=== PATIENT | male | born 1960 | race Caucasian/White ===

== ENCOUNTER → 2017-08-12 10:11 | Outpatient (CLI) | payer OTHER, MEDICARE ==
[2017-08-12 10:56] LABS: BASOPHILS 0.2 % (0-2); HEMATOCRIT 42.6 % (42.0-54.0); HEMOGLOBIN 15.2 g/dL (13.5-17.5); LYMPHOCYTES 25.2 % (15-50); MCH 32.1 pg (26.0-34.0); MCHC 35.7 g/dL (31.0-37.0); MCV 89.9 fL (80.0-100.0); MEAN PLATELET VOLUME 8.7 fL (7.4-10.4); MONOCYTES 10.2 % (2-11); NEUTROPHILS 62.4 % (40-80); PLATELET COUNT 141 10x3/uL (130-400); RBC 4.74 10x6/uL (4.20-6.10); RDW 12.3 % (11.5-14.5); WBC 4.4 10x3/uL (4.8-10.8)
[2017-08-12 11:31] LABS: ALBUMIN 4.1 g/dL (3.4-5.0); ANION GAP 14.6 mmol/L (8-16); BILIRUBIN - TOTAL 0.6 mg/dL (0.2-1.3); CALCIUM 9.5 mg/dL (8.5-10.1); CARBON DIOXIDE 26.4 mmol/L (21.0-32.0); CHOL - HDL RATIO 3.4 ratio (2.3-4.9); CREATININE - SERUM 1.2 mg/dL (0.6-1.3); PROTEIN - SERUM 7.8 g/dL (6.4-8.2); THYROID STIMULATING HORMONE 1.33 uIU/mL (0.36-3.74)
[2017-08-12 11:32] LABS: SCREENING PSA (YEARLY) 0.92 ng/mL (0.00-4.00)
== END | disposition home or self-care (01) ==
LOC: D.LAB 10:11
PROVIDERS: Family Medicine
DX: Z00.01 Encounter for general adult medical examination with abnormal findings (principal); E78.5 Hyperlipidemia, unspecified; K86.1 Other chronic pancreatitis; I45.9 Conduction disorder, unspecified; Z12.5 Encounter for screening for malignant neoplasm of prostate

== ENCOUNTER 2018-03-01 06:00 | Day surgery (SDC) | payer OTHER, MEDICARE ==
[2018-02-26 14:13] LABS: HEMATOCRIT 41.7 % (42.0-54.0); HEMOGLOBIN 15.3 g/dL (13.5-17.5); MCH 32.3 pg (26.0-34.0); MCHC 36.7 g/dL (31.0-37.0); MCV 88.2 fL (80.0-100.0); RBC 4.73 10x6/uL (4.20-6.10); RDW 12.1 % (11.5-14.5); WBC 5.8 10x3/uL (4.8-10.8)
[2018-02-26 14:35] LABS: APTT 26.2 SECONDS (22.8-39.4); INR 0.96 (0.85-1.17); PROTIME 12.4 SECONDS (11.6-15.0)
[2018-02-26 15:03] LABS: CALC OSMOLALITY 280 mosm/kg (275-300); CALCIUM 9.6 mg/dL (8.5-10.1); CARBON DIOXIDE 28.7 mmol/L (21.0-32.0); CHLORIDE - SERUM 104 mmol/L (98-107); GLUCOSE 96 mg/dL (74-106); POTASSIUM - SERUM 4.3 mmol/L (3.5-5.1); SODIUM 140 mmol/L (136-145); UREA NITROGEN 18 mg/dL (7-18); eGFR NON AFRICAN AMERICAN 82 mL/min (90-120)
[~2018-03-01] VITALS: Ht 177.8 cm; Wt 81.2 kg
--- NOTE | ~2018-03-01 | OP ---
PATIENT NAME: RAYA GAYTAN MEDICAL RECORD: [id number] :62 LOCATION:[facility] ADMISSION DATE: SURGEON: LOI BARKER MD DATE OF OPERATION: 03/01/2018 SURGEON: Loi Barker MD ANESTHESIA: General, Dr. Gill. OPERATION PERFORMED: Pulse generator exchange, AICD. PREOPERATIVE DIAGNOSIS: Cardiomyopathy. POSTOPERATIVE DIAGNOSIS: Cardiomyopathy. INDICATION FOR OPERATION: Pulse generator end of life. FINDINGS OF THE OPERATION: The pacemaker implanted Medtronic model number [id number], serial number [id number]. Chronic atrial lead: Atrial lead is Guidant, the atrial threshold is 0.5 volts, impedance 361 ohms, P-wave 4.8. The ventricular lead is a Guidant, threshold 1.0 volts, impedance 361 ohms, R-wave 9.1. ESTIMATED BLOOD LOSS: Less than 2 cc. DESCRIPTION OF PROCEDURE: After informed consent, adequate preoperative medication evaluation, the patient was brought to the operating room, placed on the table in the supine position. After induction of general anesthesia and application of appropriate monitoring devices, the left chest was prepped and draped in sterile field, utilizing Betadine scrub, alcohol, and Betadine solution. Betadine-impregnated drape was also used. Then, 1% lidocaine was infiltrated over the device as well as in the pulse generator pocket. Incision was made. Dissection carried down to the device. The device was removed. Hemostasis was achieved. The pocket was enlarged inferiorly and medially. Hemostasis was assured. The leads were then connected to the new pulse generator and placed in the pocket, fired, captured and sensed appropriately. The above findings were noted. They were felt to be good chronic leads. Pocket was irrigated. The instrument count and sponge count were correct times 2. The pocket was closed in layers utilizing 3-0 Vicryl on deep subcutaneous tissue, 5-0 subcuticular Monocryl on the skin. Sterile dressings were applied. The patient tolerated the procedure well and transferred to postanesthesia recovery in satisfactory condition. TRANSINT:[id number] Voice Confirmation ID: [id number] DOCUMENT ID: [id number] OPERATIVE REPORT [id number] GAYTANRAYA MENDEZ LOI BARKER MD at 3553 CC: [id number] DICTATION DATE: 03/01/18 0826 CARDIOLOGY CLINICAL CONSULTANT: 03/01/[address] [facility] 03/01/18 [place] [place] [address]
--- NOTE | ~2018-03-01 | HP ---
PATIENT: RAYA GAYTAN MEDICAL RECORD: [id number] ACCOUNT: [id number] LOCATION:D.OPS : 61 ADMISSION DATE: 03/01/18 HISTORY AND PHYSICAL EXAMINATION NameRAYA GAYTAN (57yo, M) ID# [id number]. Date/Time02/22/2018 11:93LEHCI1961Service Dept.NPP_[facility] ClinicProviderEDLILIANA BARKER MDInsuranceMed Primary: AETNA (PPO) Insurance # : [id number] Policy/Group # : [id number] Referring Provider Name : JEFFY MCNEILL Employer Name : DISABLED Med Secondary: [place]) Insurance # : [id number] Referring Provider Name : JEFFY MCNEILL Employer Name : DISABLED Prescription: CMX - Member is eligible. Chief Complaint pulse generator end-of-life Followup: Conduction disorder of the heart eval for ICD generator exchange Patient's Care Team Referring Provider (): JEFFY MCNEILL: [address] [place] [address] , [address], [place] [address], , Box Sealing Machine Feeder: CARSON BRISCOE MD Patient's Pharmacies [facility] (ERX): [address], [place] [address], , Vitals BP:142/90 sitting L arm 02/22/2018 11:26 amBP Cuff Size:adult 02/22/2018 11:26 amHR:66,reg 02/22/2018 11:26 amHt:5 ft 10 in 02/22/2018 11:21 amWt:179 lbs 02/22/2018 11:25 amNotes:2009 had defibrillator placed secondary to cardiomyopathy. Has not been shocked.02/22/2018 11:27 amBMI:25.7 02/22/2018 11:25 amAllergies Reviewed Allergies CARAFATE: Other (Moderate) - pancreatitisLEVAQUIN: Rash (Mild to moderate)MORPHINE: Rash (Severe)PHENERGAN: Other (Severe) - hallucinationsMedications Reviewed Medications ALPRAZolam 0.25 mg tablet TK 1 T PO TID PRA02/02/18 filledCaremarkcarvedilol 12.5 mg tablet TK 1 AND 1/2 TS PO BID02/16/18 filledCaremarkchlordiazepoxide-clidinium 5 mg-2.5 mg capsule TK ONE C PO Q 6 H PRF EZKTSPIM31/08/18 filledsurescriptsEliquis 2.5 mg tablet TK 1 T PO BID02/16/18 filledCaremarkfenofibric acid (choline) 135 mg capsule,delayed release TK ONE C PO QD02/16/18 filledCaremarkfluvastatin 20 mg capsule TK 1 C PO QD02/16/18 filledCaremarkLovenox 40 mg/0.4 mL subcutaneous syringe Inject 0.4 mL twice a day by subcutaneous route.02/22/18 prescribedSaw Barker MDomeprazole 40 mg capsule,delayed release TAKE 1 CAPSULE BY MOUTH TWICE DAILY02/08/18 filledCaremarkondansetron HCl 4 mg tablet TK 1 T PO Q 6 H PRN09/28/17 filledsurescriptstraMADol 50 mg tablet TK 1 T PO Q 6 H PRN08/17/17 filledCaremarkVirt-Gilma Forte 2.5 mg-25 mg-2 mg tablet Take 1 tablet(s) every day by oral route for 90 days.04/30/17 prescribedThomas Joy Mcneill MDzolpidem ER 12.5 mg tablet,extended release,multiphase TK 1 T PO QD HS PRF SLEEP02/02/18 filledCaremarkVaccines HISTORY AND PHYSICAL [id number] RAYA GAYTAN Reviewed Vaccines Vaccine TypeDateAmt.RouteSiteLot #Mfr.Exp. DateDate on VISVIS ZuoocApzwvnmbfqNqbclhsdj54/170.5 mLIntramuscularRight Upper UwaT5W3HUkhqxVabuwLwgqb11//01/1510/25/17kellie munizinfluenza, injectable, ptrvciymzzie81/11/16influenza, high dose seekiljl85/2014influenza, seasonal, evelyylxlg71/2013Problems Reviewed Problems Disorder of implantable defibrillator - Onset: 02/22/2018 - end of battery life Pain in lower limb Chronic obstructive lung disease Abdominal pain Blindness of one eye Chronic pancreatitis Congestive heart failure Conduction disorder of the heart Hyperlipidemia Essential hypertension Cardiomyopathy Chronic renal failure multiple: heart, pancreas, pulmonary, lipid, copd, chronic renal failure. blind left eye, hyperlipidemia, previous p.e.. off alcohol and tobacco since 2008 Family History Reviewed Family History Mother- Heart diseaseSocial History Reviewed Social History Cardiology and General Family history of heart disease?: Y Smoking Status: Former smoker (Notes: quit 5 years ago) High Cholesterol: Y High blood pressure: Y Exercise level: Occasional Diabetes: N Alcohol intake: Occasional Diet: Regular Marital status: Education: 12 Caffeine intake: Moderate Surgical History Reviewed Surgical History pacemaker-ST KATIE Past Medical History Reviewed Past Medical History Abdominal Pain: Y Blood Clots: Y Chest Pain: Y - upon exertion Dizzy Spells: Y Headache: Y High Blood Pressure: Y Kidney Disease: Y HISTORY AND PHYSICAL [id number] RAYA GAYTAN Shortness of Breath: Y - when walking Notes: chronic pancreatitis Documents for Discussion N/A Screening None recorded. HPI Fatigue Reported by patient. Quality: continuous; symptoms worse during the day Severity: normal sleep patterns; normal activity Duration: intermittent Context: symptoms do not improve on weekends/vacations Modifying Factors: new stressors in life Associated Symptoms: no drug/alcohol withdrawal; no depression; no anxiety; no sleep disturbances; no snoring; periods of not breathing (apnea) have not been observed; no recent change in weight automatic implantable cardio defibrillator end-of-life ROS Patient reports exercise intolerance but reports no fever, no night sweats, no significant weight gain, and no significant weight loss. He reports no dry eyes, no irritation, and no vision change; blind od. He reports no chest pain, no arm pain on exertion, no shortness of breath when walking, no shortness of breath when lying down, no palpitations, and no known heart murmur; pacemaker/defib.. He reports fatigue. He reports no cough, no wheezing, no shortness of breath, and no coughing up blood. He reports no abdominal pain, no vomiting, normal appetite, no diarrhea, not vomiting blood, no nausea, and no constipation. He reports no incontinence, no difficulty urinating, no hematuria, and no increased frequency. He reports no muscle ach e s, no muscle weakness, no arthralgias/joint pain, no back pain, and no swelling in the extremities. He reports no abnormal mole, no jaundice, and no rashes. He reports no loss of consciousness, no weakness, no numbness, no seizures, no dizziness, and no h eadaches. He reports no depression, no sleep disturbances, feeling safe in relationship, and no alcohol abuse. He reports no swollen glands and no bruising. He reports no runny nose, no sinus pressure, no itching, no hives, and no frequent sneezing. ROS as noted in the HPI Physical Exam Patient is a 57-year-old male. Constitutional: General Appearance well nourished and developed and healthy-appearing. Level of Distress NAD. Ambulation ambulating normally. Cardiovascular: Apical Impulse not displaced or n o thrill. Heart Auscultation normal s1 and s2; no murmurs, rubs, or gallops; and RRR. Arterial Pulses no abdominal aorta bruits, femoral bruits, or popliteal bruits and 2+ bilateral, carotid 2+ bilateral, femoral 2+ bilateral, popliteal 2+ bilateral, and dorsalis pedis 2+ bilateral. Edema no edema or varicosities. Lungs: Repiratory Effort no dyspnea. Percussion no hyperresonance or dullness or flatness. Auscultation no wheezing, rhonchi, or rales / crackles and breathing sounds normal, good air movement, and CTA except as noted. Abdomen: Bowl Sounds normal. Inspection and Palpation no tenderness, guarding, masses, or rebound tenderness and soft and non-distended. Liver non-tender and no hepatomegaly. Spleen non-tender and no splenomegaly. Hernia none palpable. HISTORY AND PHYSICAL [id number] RAYA GAYTAN Musculoskeletal System: Gait And Stance normal gait and stance. Digits and Nails normal nails and no cyanosis. Neurologic: Cranial Nerves grossly intact. Reflexes DTRs 2+ bilaterally throughout. Sensation grossly intact. Lymph Nodes: Lymph Nodes no cervical LAD, supraclavicular LAD, axillary LAD, or inguinal LAD. Eyes: Lids and Conjunctivae no discharge or pallor and non-injected and ptosis; blind in his Left eye . Pupils anisocoria. Cornea grossly intact and opacity (left). EOM EOMI; Left . Lens clear. Sclerae non-icteric. Neck: Neck no masses, enlarged lymph nodes, or carotid bruits and supple and trachea midline. Thyroid no enlargement or nodules and non-tender. Skin: Inspection and Palpation no rash, lesions, ulcers, jaundice, or abnormal nevi. Assessment / Plan automatic implantable cardio defibrillator at end of life 1. Conduction disorder of the heart I45.9: Conduction disorder, unspecified CARDIAC ARRHYTHMIA: CARE INSTRUCTIONS 2. Disorder of implantable defibrillator T82.198S: Other mechanical complication of other cardiac electronic device, sequela Discussion Notes Harmonic implantable cardio defibrillator battery at end of life Patient has a cardiomyopathy as the diagnosis for his device. He has pacing episodes but no defibrillation. I have discussed his disease process with him and his in detail as well as the alternative methods of treatment. We discussed automatic implantable cardiac defibrillator exchange including the expected benefits and risks which i nclude bleeding, infection, stroke, , and the imponderables. He understands all of the above and wishes to proceed with planned surgery. The patient will need a Lovenox bridge to surgery due to his eliquis. SAW BARKER MD at 1256 CC: [id number] DICTATION DATE: 02/22/18 1100 LOADING UNIT TOOL SETTER: BRENDA 02/25/18 1318 PRE [facility] [address] [place] [address]
--- NOTE | ~2018-03-01 | HP ---
PATIENT: RAYA GAYTAN MEDICAL RECORD: [id number] ACCOUNT: [id number] LOCATION:D.OPS : 61 ADMISSION DATE: 03/01/18 HISTORY AND PHYSICAL EXAMINATION NameRAYA GAYTAN (57yo, M) ID# [id number]. Date/Time02/22/2018 11:91EQFKL1961Service Dept.NPP_[place] [facility] ClinicProviderEDLILIANA BARKER MDInsuranceMed Primary: AETNA (PPO) Insurance # : [id number] Policy/Group # : [id number] Referring Provider Name : JEFFY MCNEILL Employer Name : DISABLED Med Secondary: [place] (MED[place]ARE) Insurance # : [id number] Referring Provider Name : JEFFY MCNEILL Employer Name : DISABLED Prescription: CMX - Member is eligible. Chief Complaint pulse generator end-of-life Followup: Conduction disorder of the heart eval for ICD generator exchange Patient's Care Team Referring Provider (): JEFFY MCNEILL: [address] [place] [address] , [address], [place] [address], , Cage Supervisor: CARSON BRISCOE MD Patient's Pharmacies [facility] [address] (ERX): [address], [place] [address], , Vitals BP:142/90 sitting L arm 02/22/2018 11:26 amBP Cuff Size:adult 02/22/2018 11:26 amHR:66,reg 02/22/2018 11:26 amHt:5 ft 10 in 02/22/2018 11:21 amWt:179 lbs 02/22/2018 11:25 amNotes:2009 had defibrillator placed secondary to cardiomyopathy. Has not been shocked.02/22/2018 11:27 amBMI:25.7 02/22/2018 11:25 amAllergies Reviewed Allergies CARAFATE: Other (Moderate) - pancreatitisLEVAQUIN: Rash (Mild to moderate)MORPHINE: Rash (Severe)PHENERGAN: Other (Severe) - hallucinationsMedications Reviewed Medications ALPRAZolam 0.25 mg tablet TK 1 T PO TID PRA02/02/18 filledCaremarkcarvedilol 12.5 mg tablet TK 1 AND 1/2 TS PO BID02/16/18 filledCaremarkchlordiazepoxide-clidinium 5 mg-2.5 mg capsule TK ONE C PO Q 6 H PRF [id number]/08/18 filledsurescriptsEliquis 2.5 mg tablet TK 1 T PO BID02/16/18 filledCaremarkfenofibric acid (choline) 135 mg capsule,delayed release TK ONE C PO QD02/16/18 filledCaremarkfluvastatin 20 mg capsule TK 1 C PO QD02/16/18 filledCaremarkLovenox 40 mg/0.4 mL subcutaneous syringe Inject 0.4 mL twice a day by subcutaneous route.02/22/18 prescribedSaw Barker MDomeprazole 40 mg capsule,delayed release TAKE 1 CAPSULE BY MOUTH TWICE DAILY02/08/18 filledCaremarkondansetron HCl 4 mg tablet TK 1 T PO Q 6 H PRN09/28/17 filledsurescriptstraMADol 50 mg tablet TK 1 T PO Q 6 H PRN08/17/17 filledCaremarkVirt-Gilma Forte 2.5 mg-25 mg-2 mg tablet Take 1 tablet(s) every day by oral route for 90 days.04/30/17 prescribedThomas Joy Mcneill MDzolpidem ER 12.5 mg tablet,extended release,multiphase TK 1 T PO QD HS PRF SLEEP02/02/18 filledCaremarkVaccines HISTORY AND PHYSICAL [id number] RAYA GAYTAN Reviewed Vaccines Vaccine TypeDateAmt.RouteSiteLot #Mfr.Exp. DateDate on VISVIS SarwzUednmzohuuOxssoktjg03/170.5 mLIntramuscularRight Upper UegN2F9JNdwhzUclmvUnzwq34//01/1510/25/17kellie munizinfluenza, injectable, abclnhofdfon15/11/16influenza, high dose ynxmoejq65/2014influenza, seasonal, agxhvvhzgi89/2013Problems Reviewed Problems Disorder of implantable defibrillator - Onset: 02/22/2018 - end of battery life Pain in lower limb Chronic obstructive lung disease Abdominal pain Blindness of one eye Chronic pancreatitis Congestive heart failure Conduction disorder of the heart Hyperlipidemia Essential hypertension Cardiomyopathy Chronic renal failure multiple: heart, pancreas, pulmonary, lipid, copd, chronic renal failure. blind left eye, hyperlipidemia, previous p.e.. off alcohol and tobacco since 2008 Family History Reviewed Family History Mother- Heart diseaseSocial History Reviewed Social History Cardiology and General Family history of heart disease?: Y Smoking Status: Former smoker (Notes: quit 5 years ago) High Cholesterol: Y High blood pressure: Y Exercise level: Occasional Diabetes: N Alcohol intake: Occasional Diet: Regular Marital status: Education: 12 Caffeine intake: Moderate Surgical History Reviewed Surgical History pacemaker-ST KATIE Past Medical History Reviewed Past Medical History Abdominal Pain: Y Blood Clots: Y Chest Pain: Y - upon exertion Dizzy Spells: Y Headache: Y High Blood Pressure: Y Kidney Disease: Y HISTORY AND PHYSICAL [id number] RAYA GAYTAN Shortness of Breath: Y - when walking Notes: chronic pancreatitis Documents for Discussion N/A Screening None recorded. HPI Fatigue Reported by patient. Quality: continuous; symptoms worse during the day Severity: normal sleep patterns; normal activity Duration: intermittent Context: symptoms do not improve on weekends/vacations Modifying Factors: new stressors in life Associated Symptoms: no drug/alcohol withdrawal; no depression; no anxiety; no sleep disturbances; no snoring; periods of not breathing (apnea) have not been observed; no recent change in weight automatic implantable cardio defibrillator end-of-life ROS Patient reports exercise intolerance but reports no fever, no night sweats, no significant weight gain, and no significant weight loss. He reports no dry eyes, no irritation, and no vision change; blind od. He reports no chest pain, no arm pain on exertion, no shortness of breath when walking, no shortness of breath when lying down, no palpitations, and no known heart murmur; pacemaker/defib.. He reports fatigue. He reports no cough, no wheezing, no shortness of breath, and no coughing up blood. He reports no abdominal pain, no vomiting, normal appetite, no diarrhea, not vomiting blood, no nausea, and no constipation. He reports no incontinence, no difficulty urinating, no hematuria, and no increased frequency. He reports no muscle ach e s, no muscle weakness, no arthralgias/joint pain, no back pain, and no swelling in the extremities. He reports no abnormal mole, no jaundice, and no rashes. He reports no loss of consciousness, no weakness, no numbness, no seizures, no dizziness, and no h eadaches. He reports no depression, no sleep disturbances, feeling safe in relationship, and no alcohol abuse. He reports no swollen glands and no bruising. He reports no runny nose, no sinus pressure, no itching, no hives, and no frequent sneezing. ROS as noted in the HPI Physical Exam Patient is a 57-year-old male. Constitutional: General Appearance well nourished and developed and healthy-appearing. Level of Distress NAD. Ambulation ambulating normally. Cardiovascular: Apical Impulse not displaced or n o thrill. Heart Auscultation normal s1 and s2; no murmurs, rubs, or gallops; and RRR. Arterial Pulses no abdominal aorta bruits, femoral bruits, or popliteal bruits and 2+ bilateral, carotid 2+ bilateral, femoral 2+ bilateral, popliteal 2+ bilateral, and dorsalis pedis 2+ bilateral. Edema no edema or varicosities. Lungs: Repiratory Effort no dyspnea. Percussion no hyperresonance or dullness or flatness. Auscultation no wheezing, rhonchi, or rales / crackles and breathing sounds normal, good air movement, and CTA except as noted. Abdomen: Bowl Sounds normal. Inspection and Palpation no tenderness, guarding, masses, or rebound tenderness and soft and non-distended. Liver non-tender and no hepatomegaly. Spleen non-tender and no splenomegaly. Hernia none palpable. HISTORY AND PHYSICAL [id number] RAYA GAYTAN Musculoskeletal System: Gait And Stance normal gait and stance. Digits and Nails normal nails and no cyanosis. Neurologic: Cranial Nerves grossly intact. Reflexes DTRs 2+ bilaterally throughout. Sensation grossly intact. Lymph Nodes: Lymph Nodes no cervical LAD, supraclavicular LAD, axillary LAD, or inguinal LAD. Eyes: Lids and Conjunctivae no discharge or pallor and non-injected and ptosis; blind in his Left eye . Pupils anisocoria. Cornea grossly intact and opacity (left). EOM EOMI; Left . Lens clear. Sclerae non-icteric. Neck: Neck no masses, enlarged lymph nodes, or carotid bruits and supple and trachea midline. Thyroid no enlargement or nodules and non-tender. Skin: Inspection and Palpation no rash, lesions, ulcers, jaundice, or abnormal nevi. Assessment / Plan automatic implantable cardio defibrillator at end of life 1. Conduction disorder of the heart I45.9: Conduction disorder, unspecified CARDIAC ARRHYTHMIA: CARE INSTRUCTIONS 2. Disorder of implantable defibrillator T82.198S: Other mechanical complication of other cardiac electronic device, sequela Discussion Notes Harmonic implantable cardio defibrillator battery at end of life Patient has a cardiomyopathy as the diagnosis for his device. He has pacing episodes but no defibrillation. I have discussed his disease process with him and his in detail as well as the alternative methods of treatment. We discussed automatic implantable cardiac defibrillator exchange including the expected benefits and risks which i nclude bleeding, infection, stroke, , and the imponderables. He understands all of the above and wishes to proceed with planned surgery. The patient will need a Lovenox bridge to surgery due to his eliquis. SAW BARKER MD at 1256 CC: [id number] DICTATION DATE: 02/22/18 1100 DRAMATIC DIRECTOR: BRENDA 02/23/18 0832 [facility] [address] [place] [address]
[~2018-03-01 06:00] MED LIST: AMBIEN10 MG PO; COREG12.5 MG PO; FOLIC ACID0.8 MG PO; LESCOL20 MG PO; OMEPRAZOLE40 MG PO; TRILIPIX135 MG PO; XANAX0.25 MG PO; ZOFRAN4 MG PO
[2018-03-01] MEDS ORDERED: ULTRAM50 MG PO (06:23)
[2018-03-01] MEDS ORDERED: LIBRAX CAPSULE1 CAP PO (06:24)
[2018-03-01] MEDS ORDERED: ELIQUIS2.5 MG PO (06:25)
[2018-03-01] MEDS ORDERED: LOVENOX40 MG/0.4 SC (06:26)
[2018-03-01 06:27] VITALS: BP 139/91; Ht 177.8 cm; Wt 81.2 kg
== END 2018-03-01 09:45 | disposition home or self-care (01) ==
LOC: D.OPS 06:00 → D.PAN 07:30 → D.OPS 07:30
PROVIDERS: Internal Medicine Cardiovascular Disease
DX: Z45.02 Encounter for adjustment and management of automatic implantable cardiac defibrillator (principal); I42.9 Cardiomyopathy, unspecified; Z01.812 Encounter for preprocedural laboratory examination

== ENCOUNTER → 2018-08-24 13:26 | Outpatient (CLI) | payer MEDICARE, OTHER ==
[2018-03-01 06:27] VITALS: BMI 25.7
[~2018-08-24 13:26] MED LIST changes: +ELIQUIS2.5 MG PO; +LIBRAX CAPSULE1 CAP PO; +LOVENOX40 MG/0.4 SC; +ULTRAM50 MG PO
[2018-08-24 14:08] LABS: BASOPHILS 0.4 % (0-2); EOSINOPHILS 4.6 % (0-7); HEMATOCRIT 39.2 % (42.0-54.0); HEMOGLOBIN 14.1 g/dL (13.5-17.5); IMMATURE GRANULOCYTES 0.2 % (0-5); LYMPHOCYTES 28.4 % (15-50); MCH 31.5 pg (26.0-34.0); MCV 87.5 fL (80.0-100.0); MONOCYTES 11.2 % (2-11); NEUTROPHILS 55.2 % (40-80); PLATELET COUNT 131 10x3/uL (130-400); RBC 4.48 10x6/uL (4.20-6.10); RDW 12.4 % (11.5-14.5); WBC 4.8 10x3/uL (4.8-10.8)
[2018-08-24 14:42] LABS: ALBUMIN 3.8 g/dL (3.4-5.0); ALKALINE PHOSPHATASE 34 U/L (46-116); ALT (SGPT) 23 U/L (10-68); BILIRUBIN - TOTAL 0.51 mg/dL (0.2-1.3); CALC OSMOLALITY 281 mosm/kg (275-300); CALCIUM 8.7 mg/dL (8.5-10.1); CARBON DIOXIDE 28.2 mmol/L (21.0-32.0); CHLORIDE - SERUM 104 mmol/L (98-107); CHOL - HDL RATIO 3.3 ratio (2.3-4.9); CHOLESTEROL, TOTAL 179 mg/dL (0-200); CREATININE - SERUM 0.9 mg/dL (0.6-1.3); GLUCOSE 97 mg/dL (74-106); HDL CHOLESTEROL 55 mg/dL (32-96); LDL CHOLESTEROL 91 mg/dL (0-100); LDL-HDL RATIO 1.7 ratio (1.5-3.5); POTASSIUM - SERUM 3.7 mmol/L (3.5-5.1); PROTEIN - SERUM 7.2 g/dL (6.4-8.2); SODIUM 141 mmol/L (136-145); THYROID STIMULATING HORMONE 0.97 uIU/mL (0.36-3.74); TRIGLYCERIDE 167 mg/dL (30-200); UREA NITROGEN 15 mg/dL (7-18); eGFR NON AFRICAN AMERICAN > 90 mL/min (90-120)
[2018-08-24 15:55] LABS: SCREENING PSA (YEARLY) 0.65 ng/mL (0.00-4.00)
== END | disposition home or self-care (01) ==
LOC: D.LAB 13:26
PROVIDERS: Family Medicine
DX: Z00.01 Encounter for general adult medical examination with abnormal findings (principal); Z12.5 Encounter for screening for malignant neoplasm of prostate; E78.5 Hyperlipidemia, unspecified; K86.1 Other chronic pancreatitis; I45.9 Conduction disorder, unspecified

== ENCOUNTER → 2021-01-24 13:40 | Outpatient (CLI) | payer MEDICARE, OTHER ==
[2018-03-01 06:27] VITALS: BMI 25.7
== END | disposition home or self-care (01) ==
LOC: D.CT 13:40
PROVIDERS: ATTEND Nurse Practitioner Family
DX: G56.22 Lesion of ulnar nerve, left upper limb (principal)